=== PATIENT | female | born 1995 | race Caucasian/White ===

== ENCOUNTER 2022-02-12 17:02 | Inpatient (IN) | payer BC ==
[2022-02-12 18:15] VITALS: BMI 30.1
[2022-02-12 18:38] LABS: Fetal Membranes Rupture No Membranes Rupture (No Rupture)
[2022-02-12] MEDS ORDERED: Methylergonovine 0.2 MG/ML VIAL IM PRN (19:59)
[2022-02-12] MEDS ORDERED: Lidocaine 1% (PF) 30 ML VIAL SC PRN (19:59)
[2022-02-12] MEDS ORDERED: Diphenoxylate HCl/Atropine Tablet PO PRN ×2 (19:59)
[2022-02-12] MEDS ORDERED: HYDROcodone/Acetaminophen 5/325 mg Tablet PO PRN (19:59)
[2022-02-12] MEDS ORDERED: Docusate 100 MG CAP PO PRN (19:59)
[2022-02-12] MEDS ORDERED: Ibuprofen 800 MG TAB PO PRN (19:59)
[2022-02-12] MEDS ORDERED: Acetaminophen 500 MG TAB PO PRN (19:59)
[2022-02-12] MEDS ORDERED: Ondansetron PF 4 MG/2 ML Vial IVP PRN (19:59)
[2022-02-12] MEDS ORDERED: Promethazine HCl 25 MG/ML VIAL IM PRN (19:59)
[2022-02-12] MEDS ORDERED: Carboprost 250 MCG/ML AMP IM PRN (19:59)
[2022-02-12] MEDS ORDERED: Misoprostol 200 MCG TAB PR PRN (19:59)
[2022-02-12] MEDS ORDERED: hydrALAZINE 20 MG/ML VIAL SLOW IVP PRN (19:59)
[2022-02-12] MEDS ORDERED: Penicillin G Potassium 5 MILL.UNITS in Sodium Chloride 0.9% 100 ML IVPB SCH (20:30)
[2022-02-12] MEDS ORDERED: NS w/ Oxytocin 30 units 500 ML IV SCH ×2 (20:30)
[2022-02-12 20:49] LABS: Hemoglobin 11.5 g/dL (12.0-15.5); Mean Corpuscular HGB CONC 33.3 g/dL (32.0-36.0); Mean Corpuscular Volume 84.1 fl (81.6-98.3); Platelet Count 329 10x3/uL (150-450); RBC Distribution Width 13.5 % (11.5-14.5)
[2022-02-12 21:14] LABS: Hep B Surf Ag Non-Reactive S/CO (NonReactive); Syphilis Antibody Nonreactive (Nonreactive); Syphilis Antibody Index 0.03 S/CO (<1.00 Non-Reactive)
[2022-02-12 21:15] LABS: HBSAg Index 0.16 S/CO (0-0.99)
[2022-02-12 21:38] LABS: SARS-CoV-2 NAA Rapid Test Not Detected (NotDetected)
[2022-02-13] MEDS: Penicillin G 2.5 MILL.units 2.5 MILL.UNITS in Premix Bag 1 BAG IVPB SCH (03:37)
[2022-02-13] MEDS: Lactated Ringer's 1,000 ML IV SCH (03:38)
[2022-02-13] MEDS: Butorphanol Tartrate 1 MG/ML VIAL SLOW IVP PRN ×2 (05:14→06:11)
[2022-02-13] MEDS ORDERED: Ondansetron PF 4 MG/2 ML Vial IVP PRN (09:57)
[2022-02-13] MEDS ORDERED: diphenhydrAMINE 25 MG CAP PO PRN (09:57)
[2022-02-13] MEDS ORDERED: Boostrix 0.5 ML (Tdap) VIAL IM ONE (09:57)
[2022-02-13] MEDS ORDERED: Zolpidem Tartrate 5 MG TAB PO PRN (09:57)
[2022-02-13] MEDS ORDERED: Promethazine HCl 25 MG/ML VIAL IM PRN (09:57)
[2022-02-13] MEDS ORDERED: Benzocaine-Menthol 82.5 ML CAN TOP PRN (09:57)
[2022-02-13] MEDS ORDERED: Misoprostol 200 MCG TAB VAG PRN (09:57)
[2022-02-13] MEDS ORDERED: HYDROcodone/Acetaminophen 5/325 mg Tablet PO PRN (09:57)
[2022-02-13] MEDS ORDERED: Preparation H Ointment 28 GM TUBE PR PRN (09:57)
[2022-02-13] MEDS ORDERED: Bisacodyl 10 MG SUPP PR PRN (09:57)
[2022-02-13] MEDS ORDERED: NS w/ Oxytocin 30 units 500 ML IV SCH (09:57)
[2022-02-13] MEDS ORDERED: Methylergonovine 0.2 MG/ML VIAL IM PRN (09:57)
[2022-02-13] MEDS ORDERED: Lanolin Ointment 7 GM TUBE TOP PRN (09:57)
[2022-02-13] MEDS ORDERED: Milk Of Magnesia 30 ML UDCUP PO PRN (09:57)
[2022-02-13] MEDS ORDERED: hydrALAZINE 20 MG/ML VIAL SLOW IVP PRN (09:57)
[2022-02-13] MEDS ORDERED: Measles/Mumps/Rubella 10 MCG/0.5 ML VIAL SC ONE (09:57)
[2022-02-13] MEDS: Ferrous Sulfate 325 MG TAB PO SCH (10:35)
[2022-02-13] MEDS ORDERED: Docusate 100 MG CAP PO SCH (11:00)
[2022-02-13] MEDS ORDERED: Prenatal Vitamin 1 TAB PO SCH (11:00)
[2022-02-13] MEDS ORDERED: Ferrous Sulfate 325 MG TAB PO SCH (11:00)
[2022-02-13] MEDS: Ibuprofen 800 MG TAB PO SCH ×2 (14:10→21:52)
[2022-02-13] MEDS: Docusate 100 MG CAP PO SCH (21:51)
[2022-02-14] MEDS: Lactated Ringer's 1,000 ML IV SCH (02:08)
[2022-02-14] MEDS: Penicillin G 2.5 MILL.units 2.5 MILL.UNITS in Premix Bag 1 BAG IVPB SCH (02:08)
[2022-02-14] MEDS: Ibuprofen 800 MG TAB PO SCH ×3 (05:05→21:48)
[2022-02-14 05:12] LABS: Hemoglobin 9.4 g/dL (12.0-15.5); Mean Corpuscular HGB CONC 32.9 g/dL (32.0-36.0); Mean Corpuscular Hemoglobin 28.1 pg (27.0-33.0); Mean Corpuscular Volume 85.4 fl (81.6-98.3); Mean Platelet Volume 11.4 fl (7.4-10.4); Platelet Count 254 10x3/uL (150-450); Red Blood Cell (RBC) Count 3.35 10x6/uL (3.90-5.03); White Blood Cell (WBC) Count 12.8 10x3/uL (3.5-10.5)
[2022-02-14] MEDS: Prenatal Vitamin 1 TAB PO SCH (08:08)
[2022-02-14] MEDS: Docusate 100 MG CAP PO SCH ×2 (08:08→21:48)
[2022-02-14] MEDS: Ferrous Sulfate 325 MG TAB PO SCH ×2 (08:09→17:57)
[2022-02-14] MEDS ORDERED: Varicella virus, LIVE 0.5 ML VIAL SC ONE (09:57)
[2022-02-15] MEDS: Ibuprofen 800 MG TAB PO SCH (05:30)
[2022-02-15 07:47] VITALS: BP 117/80; TEMP 98.1
[2022-02-15] MEDS: Ferrous Sulfate 325 MG TAB PO SCH (08:48)
[2022-02-15] MEDS: Prenatal Vitamin 1 TAB PO SCH (08:48)
[2022-02-15] MEDS: Docusate 100 MG CAP PO SCH (08:48)
== END 2022-02-15 13:00 | disposition home or self-care (01) | DRG 807 ==
LOC: CSHLD/OP 17:02 → CSHLD 19:25 → CSHPP 02-13 09:40
PROVIDERS: ADMIT Obstetrics & Gynecology; ATTEND Obstetrics & Gynecology
PROC: 10E0XZZ Delivery of Products of Conception, External Approach (ICD-10-PCS; principal; 2022-02-13)
DX: O41.03X0 Oligohydramnios, third trimester, not applicable or unspecified (principal); Z37.0 Single live birth; Z3A.37 37 weeks gestation of pregnancy; Z20.822 Contact with and (suspected) exposure to COVID-19
CPT/HCPCS: 36415; 84112; 85027; 86780; 86850; 86900; 86901; 87340; 90715; 99285; J0595; J2001; J2405; J2540; J2590; J3490; J7120; U0002

== ENCOUNTER 2022-05-13 14:24 | Emergency (ER) | payer BC, OTHER ==
[2022-05-13 15:57] LABS: Hemoglobin 11.1 g/dL (12.0-15.5); MDiff Complete? YES; Mean Corpuscular HGB CONC 33.5 g/dL (32.0-36.0); Mean Corpuscular Hemoglobin 28.7 pg (27.0-33.0); Mean Corpuscular Volume 85.5 fl (81.6-98.3); Mean Platelet Volume 10.4 fl (7.4-10.4); Platelet Count 239 10x3/uL (150-450); Red Blood Cell (RBC) Count 3.87 10x6/uL (3.90-5.03)
[2022-05-13 16:17] LABS: ALT (SGPT) 22 U/L (8-55); AST (SGOT) 18 U/L (5-34); Alkaline Phosphatase 51 U/L (40-110); Anion Gap 12 mmol/L (10-20); BUN (Urea Nitrogen) 11 mg/dL (7.0-18.7); Bilirubin, Total 0.3 mg/dL (0.2-1.2); Calc. Creatinine Clearance 0 mL/min (70-130); Carbon Dioxide 25 mmol/L (22-29); Chloride 104 mmol/L (98-107); Globulin 2.9 g/dL (2.4-3.5); Glucose 105 mg/dL (70-105); Potassium 3.7 mmol/L (3.5-5.1); Protein, Total 6.9 g/dL (6.0-8.3); Sodium 137 mmol/L (136-145)
[2022-05-13 16:21] LABS: Band 7 % (5-11); Eosinophils 1 % (0-10); Lymphocytes 9 % (21-51); Monocytes 2 % (0-10); Neutrophil 81 % (42-75); Platelet Morphology Comment Appears Adequate
[2022-05-13] MEDS ORDERED: Acetaminophen 500 MG TAB ONE (18:28)
== END 2022-05-13 18:47 | disposition home or self-care (01) ==
LOC: CSHERS 14:24
DX: N61.0 Mastitis without abscess (principal)
CPT/HCPCS: 80053; 85025